=== PATIENT | male | born 1990 | race Caucasian/White ===

== ENCOUNTER 2016-12-25 00:14 | Emergency (ER) | payer OTHER ==
[2016-12-25] MEDS ORDERED: PREDNISONE 20 MG TABLET ONE (00:46)
[2016-12-25] MEDS ORDERED: CLINDAMYCIN HCL 150 MG CAPSULE ONE (00:46)
[2016-12-25] MEDS ORDERED: HYDROCODONE/ACETAMINOPHEN 5/325MG TABLET ONE (00:47)
== END 2016-12-25 00:59 | disposition home or self-care (01) ==
LOC: ED 00:14
DX: L03.211 Cellulitis of face (principal); K02.9 Dental caries, unspecified; F17.210 Nicotine dependence, cigarettes, uncomplicated
CPT/HCPCS: 99283 ×2; A9270 ×2; J7512